=== PATIENT | male | born 1980 | race African-American/Black ===

== ENCOUNTER 2020-02-19 18:00 | Emergency (ER) | payer SELFPAY ==
[~2020-02-19] VITALS: Ht 182.9 cm; Wt 100.7 kg
[2020-02-19] MEDS ORDERED: LIDOCAINE HCL/PF 1% 30 ML SDV ONE (18:40)
[2020-02-19] MEDS ORDERED: TRAMADOL HCL 50 MG TABLET ONE (18:41)
--- NOTE | 2020-02-19 18:53 | NUR ---
Patient came in to the er c/o left index pain and swelling x 1 week, on room air, breathing evenly and unlabored. connected to the monitor and pulse ox. kept comfortable, will continue to monitor accordingly.
[2020-02-19] MEDS ORDERED: LIDOCAINE 1% INJ 50 ML MDV IJ ONE (19:00)
[2020-02-19] MEDS ORDERED: TRAMADOL HCL 50 MG TABLET PO ONE (19:00)
--- NOTE | 2020-02-19 19:54 | NUR ---
Patient discharged to home in stable condition. Written and verbal after care instructions given. Patient verbalizes understanding of instruction and RX. Pt ambulated with steady gait. vss.
[2020-02-19 19:55] VITALS: BP 132/79
== END 2020-02-19 19:55 | disposition home or self-care (01) ==
LOC: ER 18:03
DX: L03.012 Cellulitis of left finger (principal); E11.9 Type 2 diabetes mellitus without complications
CPT/HCPCS: 10060; 99283; A6407; J3490